=== PATIENT | male | born 1945 | race Caucasian/White ===

== ENCOUNTER → 2017-12-13 | Day surgery (SDC) | payer MEDICARE ==
[~2017-12-13] VITALS: Ht 193 cm; Wt 106.5 kg
[~2017-12-13] MED LIST: BUPIVACAINE/EPINEPHRINE 0.25% 50 ML VIAL ONE; BUPIVACAINE/EPINEPHRINE 0.5% PF 30 ML VIAL ONE; CEPH250C PO; CHLORHEXIDINE GLUCONATE 2 % 1 PACK (2 CLOTHS) TOPICAL PRN; COLL30T TOPICAL; EZET1TAB8 PO; FAMOTIDINE 20 MG/2 ML VIAL ONE; FLUT50SP EACH NARE; FURO20TA PO; GLIM4TAB PO; LACTATED RINGER'S 1000 ML IV PRN; LISI-519 PO; LISI20TA PO; METOPROLOL TARTRATE 25 MG TAB PO PRN; POTA8TAB PO; POVIDONE IODINE 5% (ANTISEPSIS KIT) 4 APPLICATIONS EACH NARE PRN; RANI150T PO; SODIUM CHLORID 0.9% 500 ML IV PRN; ZOCO20TA PO; ZOCO40TA PO; ZOFR4TAB PO; ceFAZolin 2 GM/DEX PREMIX 50 ML IV SCH
[2017-12-13 12:36] LABS: BASOPHIL # 0.2 TH/MM3 (0-0.2); BASOPHIL % 2.8 % (0.0-2.0); EOSINOPHIL # 0.2 TH/MM3 (0-0.4); EOSINOPHIL % 2.2 % (0.0-4.0); HEMATOCRIT 44.6 % (39.0-51.0); HEMOGLOBIN 15.3 GM/DL (13.0-17.0); LYMPHOCYTE # 1.1 TH/MM3 (1.0-4.8); MEAN CELL VOLUME 90.9 FL (80.0-100.0); MEAN CORPUSCULAR HEMOGLOBIN 31.2 PG (27.0-34.0); MEAN CORPUSCULAR HGB CONC 34.3 % (32.0-36.0); MEAN PLATELET VOLUME 9.1 FL (7.0-11.0); MONO % 9.3 % (0.0-8.0); MONOCYTE # 0.7 TH/MM3 (0-0.9); NEUT % 69.7 % (16.0-70.0); PLATELET COUNT 252 TH/MM3 (150-450); RED BLOOD COUNT 4.91 MIL/MM3 (4.50-5.90); RED CELL DISTRIBUTION WIDTH 14.2 % (11.6-17.2); WHITE BLOOD COUNT 7.2 TH/MM3 (4.0-11.0)
[2017-12-13 12:50] LABS: BICARBONATE 23.6 MEQ/L (21.0-32.0); CALCIUM 8.8 MG/DL (8.5-10.1)
[2017-12-13 12:54] LABS: CREATININE 0.7 MG/DL (0.60-1.30)
[2017-12-13 15:10] VITALS: PULSE 89
--- NOTE | 2017-12-13 16:13 | MP ---
cc: Joshua Casanova MD DATE OF OPERATION: 12/13/2017 DATE OF OPERATION: 12/13/2017 PREOPERATIVE DIAGNOSIS: Intermediate thickness melanoma, left chest wall. POSTOPERATIVE DIAGNOSIS: Intermediate thickness melanoma, left chest wall. PROCEDURE PERFORMED: Wide excision of left chest wall melanoma with complex closure of wound 9 cm x 4 cm. ANESTHESIA: General with LMA and local anesthetic. SURGEON: Joshua Casanova MD ESTIMATED BLOOD LOSS: Less than 10 mL COMPLICATIONS: None. FINDINGS: 1. Residual pigmented lesion. 2. Moderate amount of tension with primary closure due to a large 4 cm excision due to extensive surface area of the lesion, over 1 cm, as well as shoulder. INDICATIONS FOR PROCEDURE: This a 72-year-old male who developed a pigmented lesion over his left chest wall that was changing. 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 After discussion with the patient about wide excision as well as the option of a sentinel lymph node biopsy, he elected to undergo wide excision as the patient had a low risk for lymph node metastasis based on the biopsy. Risks, benefits and alternatives were discussed prior to the procedure and the patient agreed to undergo the procedure. PROCEDURE: The patient was taken to the operating room at [facility] and placed in a supine position, placed under anesthesia with LMA airway. The left chest wall was shaved, prepped and draped in sterile fashion. Timeout was performed. Local anesthetic was instilled at the planned excision site over the left chest wall out to the anterior edge of the deltoid muscle for the planned excision. We marked an area of at least 1 cm or greater around the entire lesion which was over 1 cm in width and with irregular borders. Further excision of 2 cm was likely not realistic as the patient would likely not be able to undergo primary closure. Therefore, the excision was between 1 and 2 cm. We made this into an elliptical incision with a marking pen horizontally over the lines of skin tension coming from toward the sternum over towards the shoulder. We excised this with a 15 blade scalpel at the skin. We used Bovie electrocautery at the subcutaneous tissue. We removed down to the pectoralis fascia as well as down to the fascia of the deltoid. We used electrocautery to take the overlying fascia off of the underlying musculature. The specimen was marked with a stitch superior at 12 o'clock, sent for permanent processing. We then achieved excellent hemostasis with the Bovie electrocautery. Due to the very wide excision to ensure negative margins with this large pigmented lesion, as well as due to the location on the shoulder partially, this was very tight and not amenable to primary closure as is. I did perform extensive undermining 360 degrees around the wound back to include 3 and 4 cm on the pectoralis muscle as well as over the deltoid muscle. This was subcutaneous tissue, leaving some of the underlying fascia down. Once we had undermined it, we were able to pull this closed with minimal tension again moving skin from the inferior chest up over this wound. We then closed this with several deep dermal 2-0 Vicryl sutures. This gave us adequate closure and removed all tension from the wound. We were then able to place a 4-0 Monocryl and Dermabond for superficial skin closure. At this point in time, the size of the wound that was closed was 9 cm long x 4 cm wide. At this point in time, we discontinued anesthesia and the patient was taken to the PACU in stable condition. The patient tolerated the procedure well. No apparent complications. All counts were correct. I was present and scrubbed for the entire procedure. MD MARVIN Garcia/CRYSTAL , 03:40 PM , 04:12 PM
[2017-12-13 16:15] VITALS: BP 134/86; PULSE 80; RESP 15; TEMP 97.8; O2SAT 99
== END | disposition home or self-care (01) ==
LOC: PHSDC 11:26
PROVIDERS: ATTEND Surgery
DX: C43.59 Malignant melanoma of other part of trunk (principal); E11.9 Type 2 diabetes mellitus without complications; Z01.818 Encounter for other preprocedural examination
CPT/HCPCS: 00400; 11606; 13101; 13102; 36415; 80048; 85025; 88305; 88341; 88342; J0690; J3010; J7120